=== PATIENT | female | born 1965 ===

== ENCOUNTER 2018-05-06 10:42 | Day surgery (SDC) | payer BC ==
[2018-05-04 09:26] VITALS: BMI 25.6
[2018-05-06 11:13] VITALS: O2SAT 100
[2018-05-06] MEDS ORDERED: Propofol 10 mg/ml Inj (20 ML) ONE (11:47)
[2018-05-06] MEDS ORDERED: ceFAZolin IV 2 gm in Dextrose 2 GM/50 ML BAG IVPB ONE (12:13)
[2018-05-06] MEDS ORDERED: Strong Iodine Topical Sol. 5%-10% ONE (12:13)
[2018-05-06] MEDS ORDERED: Midazolam 2 MG/2 ML VIAL ONE (12:16)
[2018-05-06] MEDS ORDERED: HYDROmorphone 0.5 mg/0.5 ml ISec IVP PRN (13:02)
[2018-05-06 14:05] VITALS: RESP 16
[2018-05-06 16:07] VITALS: BP 97/57; PULSE 71; TEMP 97.7
--- NOTE | 2018-05-09 08:08 | OP ---
PROCEDURE DATE: 05/06/2018 NATURE OF OPERATION: LEEP cone biopsy. ATTENDING SURGEON: Max Gray MD ANESTHESIOLOGIST: Dr. Lai. TYPE OF ANESTHESIA: General. PREOPERATIVE DIAGNOSIS: Cervical dysplasia. POSTOPERATIVE DIAGNOSIS: Cervical dysplasia. FINDING: Reveals a multiple foci of unstained area around 3, 6, 9 and 12 o'clock position with a Lugol solution. PROCEDURE: Under general anesthesia, with the patient in dorsal lithotomy position, she was prepped and draped and catheterized in the usual sterile manner. A heavy weighted speculum was placed on the posterior vaginal vault and with the help of a Pizarro speculum, the anterior lip of the cervix was grasped via tenaculum. With the Lugol solution, the cervix was stained and identified for unstained area. Then, the LEEP, a circumferential excision was carried out around the cervical opening. This was concentric and continuous excision down to the endocervical canal. There was minimal bleeding noted, which was cauterized with the electrocautery. The patient tolerated the procedure well and was transferred to recovery room in satisfactory condition. Max Gray MD
== END 2018-05-06 14:50 | disposition home or self-care (01) ==
LOC: C.SDS 10:42
PROVIDERS: ATTEND Obstetrics & Gynecology Gynecology
DX: N87.0 Mild cervical dysplasia (principal); N87.9 Dysplasia of cervix uteri, unspecified
CPT/HCPCS: 57460; 58110; 88305; J0690; J1100; J2001; J2250; J2405; J2704; J3010

== ENCOUNTER 2018-05-15 22:09 | Emergency (ER) | payer BC ==
[2018-05-15 22:09] VITALS: BMI 25.6
[2018-05-15 22:42] VITALS: O2SAT 98
--- NOTE | 2018-05-15 22:47 | C.PDOC ---
History Of Present Illness Pt had LEEP done on 05/06 and now has been complaining of a"twisting pressure" unrelieved by tylenol. No f/c/n/v. Very anxious. No change of bowel habits Time Seen by Provider: 05/15/18 22:46 Chief Complaint (Nursing): Abdominal Pain History Per: Patient History/Exam Limitations: no limitations Onset/Duration Of Symptoms: Days Current Symptoms Are (Timing): Still Present Context: Other Severity: Moderate Pain Scale Rating Of: 4 Location Of Pain/Discomfort: Suprapubic Radiation Of Pain To:: None Quality Of Discomfort: Dull, Pressure Associated Symptoms: denies: Fever, Chills, Nausea Exacerbating Factors: None Alleviating Factors: None Last Bowel Movement: Today Recent travel outside of the [place]: No Additional History Per: Patient Abnormal Vaginal Bleeding: No Past Medical History Reviewed: Historical Data, Nursing Documentation, Vital Signs Vital Signs: Last Vital Signs Temp 98.4 F 05/15/18 22:34 Pulse 87 05/15/18 22:34 Resp 18 05/15/18 22:34 BP 113/75 05/15/18 22:34 Pulse Ox 98 05/15/18 23:11 - Medical History PMH: Hypothyroidism Denies: Chronic Kidney Disease - [facility] Procedures ASPIRATION OF BREAST (10/20/05) Family History: States: No Known Family Hx - Social History Hx Alcohol Use: No Hx Substance Use: No - Immunization History Hx Tetanus Toxoid Vaccination: No Hx Influenza Vaccination: No Hx Pneumococcal Vaccination: No Review Of Systems Constitutional: Negative for: Fever, Chills Cardiovascular: Negative for: Chest Pain Respiratory: Negative for: Shortness of Breath Gastrointestinal: Positive for: Abdominal Pain. Negative for: Nausea, Vomiting Genitourinary: Negative for: Dysuria Musculoskeletal: Negative for: Back Pain Skin: Negative for: Rash Neurological: Negative for: Weakness Psych: Negative for: Anxiety Physical Exam - Physical Exam Appears: Non-toxic, No Acute Distress Skin: Warm, Dry Head: Normacephalic Eye(s): bilateral: Normal Inspection Oral Mucosa: Moist Neck: Supple Chest: Symmetrical Cardiovascular: Rhythm Regular Respiratory: No Rales, No Rhonchi, No Wheezing Gastrointestinal/Abdominal: Soft, Tenderness (mild suprapubioc), No Distention, No Guarding Back: Normal Inspection Extremity: Normal ROM Extremity: Bilateral: Atraumatic Neurological/Psych: Oriented x3, Normal Speech, Normal Cognition Gait: Steady ED Course And Treatment - Laboratory Results Result Diagrams: 05/15/18 23:34 05/15/18 23:34 O2 Sat by Pulse Oximetry: 98 Pulse Ox Interpretation: Normal Reevaluation Time: 02:17 Reassessment Condition: Improved Disposition Counseled Patient/Family Regarding: Studies Performed, Diagnosis - Disposition Referrals: Max Gray MD [Staff Provider] - Disposition: HOME/ ROUTINE Disposition Time: 22:47 Condition: FAIR Additional Instructions: Please return if symptoms recur Prescriptions: traMADol [Ultram] 50 mg PO TID PRN #15 tab PRN Reason: Pain, Severe (8-10) Instructions: Acute Pelvic Pain (DC) Forms: [employer] (Nicaraguan) - Clinical Impression Clinical Impression: Pelvic pain
[2018-05-15] MEDS ORDERED: Sodium Chloride 0.9% 1,000 ML IV ONE (23:07)
[2018-05-15 23:15] LABS: HCG,QUALITATIVE URINE NEGATIVE (NEGATIVE)
[2018-05-15 23:22] LABS: SQUAMOUS EPITHIAL 3 /hpf (0-5); URINE BACTERIA OCC (<OCC); URINE BILIRUBIN NEGATIVE (NEGATIVE); URINE BLOOD NEGATIVE (NEGATIVE); URINE CLARITY Clear (Clear); URINE COLOR Yellow (YELLOW); URINE GLUCOSE (UA) NORMAL (Normal); URINE LEUKOCYTE ESTERASE 1+ Leu/uL (Negative); URINE PROTEIN NEGATIVE (NEGATIVE)
[2018-05-15 23:39] LABS: BASO % 0.1 % (0.0-2.0); HEMOGLOBIN 11.6 g/dL (11.0-16.0); LYMPH # 2.2 K/uL (1.0-4.3); LYMPH % 21.2 % (20.0-40.0); MEAN CELL VOLUME 85.5 fL (81.0-99.0); MEAN CORPUSCULAR HEMOGLOBIN 29.1 pg (27.0-31.0); MEAN CORPUSCULAR HGB CONC 34.1 g/dL (33.0-37.0); MEAN PLATELET VOLUME 8.9 fL (7.2-11.7); MONO # 1.2 K/uL (0.0-0.8); MONO % 11.4 % (0.0-10.0); NEUT % 67.3 % (50.0-75.0); RBC 3.98 Mil/uL (3.80-5.20); RED CELL DISTRIBUTION WIDTH 13.2 % (11.5-14.5); WHITE BLOOD COUNT 10.4 K/uL (4.8-10.8)
[2018-05-15 23:53] LABS: ALB/GLOB RATIO 1.3 (1.0-2.1); ALBUMIN 4.2 g/dL (3.5-5.0); ALT/SGPT 24 U/L (9-52); AST/SGOT 22 U/L (14-36); BLOOD UREA NITROGEN 21 mg/dL (7-17); GFR AFRICAN-AMERICAN > 60; GFR NON-AFRICAN AMERICAN > 60; LIPASE 80 U/L (23-300)
[2018-05-16] MEDS ORDERED: Iodixanol 320 MG/ML 100 ML BOTTLE IV ONE (00:34)
[2018-05-16 02:40] VITALS: BP 104/65; PULSE 79; RESP 16; TEMP 98.2
--- NOTE | 2018-05-16 08:52 | CT ---
PROCEDURE: CT Abdomen and Pelvis without intravenous contrast HISTORY: Abdominal pain, s/p LEEP COMPARISON: None. TECHNIQUE: Multiple contiguous axial images were performed through the abdomen and pelvis with intravenous contrast. Subsequently, sagittal and coronal reformatted images were. Contrast dose: 100 cc Visipaque 320 intravenous contrast was administered. Radiation dose: Total exam DLP = 362 mGy-cm. This CT exam was performed using one or more of the following dose reduction techniques: Automated exposure control, adjustment of the mA and/or kV according to patient size, and/or use of iterative reconstruction technique. FINDINGS: LOWER THORAX: Mild atelectasis in the medial right middle lobe. LIVER: Unremarkable. No gross lesion or ductal dilatation. GALLBLADDER AND BILE DUCTS: Unremarkable. PANCREAS: Unremarkable. No gross lesion or ductal dilatation. SPLEEN: Unremarkable. ADRENALS: Unremarkable. No mass. KIDNEYS AND URETERS: 4.8 centimeter lower pole left renal cyst. VASCULATURE: Unremarkable. No aortic aneurysm. BOWEL: Unremarkable. No obstruction. No gross mural thickening. APPENDIX: No findings to suggest acute appendicitis. PERITONEUM: Unremarkable. No free fluid. No free air. LYMPH NODES: Unremarkable. No enlarged lymph nodes. BLADDER: Unremarkable. REPRODUCTIVE: Hypodensity in the cervical canal which may reflect fluid or hemorrhage. BONES: Prominent endplate sclerosis with anterior osteophytosis at the L3-4 level. OTHER FINDINGS: None. IMPRESSION: Hypodensity in the cervical canal which may reflect fluid or hemorrhage. Clinical correlation. These findings were preliminarily reported at 02:05 a.m. on 05/16/[address] Chaz Bui from [employer].
== END 2018-05-16 02:39 | disposition home or self-care (01) ==
LOC: C.ER 22:09
DX: R10.2 Pelvic and perineal pain (principal); E03.9 Hypothyroidism, unspecified
CPT/HCPCS: 74177; 80053; 81001; 83690; 84703; 85025; 85610; 85730; 96361; 96374; 99284; J1885; J7030; Q9967

== ENCOUNTER 2018-05-19 07:41 | Emergency (ER) | payer BC ==
[2018-05-19 07:46] VITALS: BMI 26.5
[2018-05-19 07:52] VITALS: O2SAT 100
[2018-05-19] MEDS ORDERED: Sodium Chloride 0.9% 1,000 ML IV ONE (08:24)
[2018-05-19] MEDS ORDERED: Sodium Chloride 0.9% 1,000 ML ONE (08:34)
[2018-05-19 08:48] LABS: BASO % 0.1 % (0.0-2.0); HEMOGLOBIN 12.1 g/dL (11.0-16.0); LYMPH # 1.4 K/uL (1.0-4.3); LYMPH % 14.6 % (20.0-40.0); MEAN CELL VOLUME 85.5 fL (81.0-99.0); MEAN CORPUSCULAR HEMOGLOBIN 29.5 pg (27.0-31.0); MEAN CORPUSCULAR HGB CONC 34.5 g/dL (33.0-37.0); MEAN PLATELET VOLUME 8.3 fL (7.2-11.7); MONO # 0.9 K/uL (0.0-0.8); MONO % 9.2 % (0.0-10.0); NEUT # 7.3 K/uL (1.8-7.0); NEUT % 76.1 % (50.0-75.0); RBC 4.09 Mil/uL (3.80-5.20); WHITE BLOOD COUNT 9.6 K/uL (4.8-10.8)
[2018-05-19 08:49] LABS: HCG,QUALITATIVE URINE NEGATIVE (NEGATIVE)
[2018-05-19 08:58] LABS: URINE BILIRUBIN NEGATIVE (NEGATIVE); URINE BLOOD NEGATIVE (NEGATIVE); URINE CLARITY Clear (Clear); URINE COLOR Straw (YELLOW); URINE GLUCOSE (UA) NORMAL (Normal); URINE LEUKOCYTE ESTERASE NEG Leu/uL (Negative); URINE PROTEIN NEGATIVE (NEGATIVE); URINE UROBILINOGEN NORMAL mg/dL (0.2-1.0)
[2018-05-19 09:02] LABS: ALB/GLOB RATIO 1.3 (1.0-2.1); ALBUMIN 4.2 g/dL (3.5-5.0); ALT/SGPT 21 U/L (9-52); AST/SGOT 21 U/L (14-36); BLOOD UREA NITROGEN 12 mg/dL (7-17); GFR AFRICAN-AMERICAN > 60; GFR NON-AFRICAN AMERICAN > 60
[2018-05-19 11:06] VITALS: BP 122/84; PULSE 86; RESP 16; TEMP 98.2
--- NOTE | 2018-05-19 11:07 | US ---
HISTORY: Pain, s/p leep COMPARISON: None available. TECHNIQUE: Transabdominal sonographic evaluation of the pelvis FINDINGS: UTERUS: Measures 12.4 x 4.7 x 6.6 cm. Normal in size and appearance. No fibroid or other mass lesion seen. ENDOMETRIUM: Measures 6.4 mm in diameter. Unremarkable. CERVIX: No cervical abnormality identified. Cervix measures 3.62 RIGHT OVARY: Measures 2.7 x 2.6 x 2.6 cm. No solid mass. Normal flow. LEFT OVARY: Measures 3.7 x 2.5 x 3.2. Cm. No solid mass. Normal flow. Two small adjacent cysts are present, the 1st measuring approximately 2.1 cm in greatest dimension and the 2nd measuring 1.5 cm in greatest dimension. FREE FLUID: No significant free fluid noted. OTHER FINDINGS: None. IMPRESSION: There are 2 small left ovarian cysts.
--- NOTE | 2018-05-19 12:01 | C.PDOC ---
History Of Present Illness 52 year old female presents to the ED for evaluation of pelvic pain which has been intermittent since 05/06/18. Patient states she underwent LEEP on 05/06 and has been experiencing pelvic pain and pressure since. She reports finding transient relief after taking [id number] pain medicine. She denies fever, chills, nausea, vomiting, changes in bowel habits, urinary frequency, dysuria, or vaginal bleeding. Time Seen by Provider: 05/19/18 07:54 Chief Complaint (Nursing): Abdominal Pain History Per: Patient History/Exam Limitations: no limitations Onset/Duration Of Symptoms: Intermittent Episodes (since 05/06/18) Current Symptoms Are (Timing): Still Present Radiation Of Pain To:: None Quality Of Discomfort: Pressure, "Pain" Associated Symptoms: denies: Fever, Chills, Nausea, Vomiting, Diarrhea, Constipation, Urinary Symptoms Additional History Per: Patient Abnormal Vaginal Bleeding: No Past Medical History Reviewed: Historical Data, Nursing Documentation, Vital Signs Vital Signs: Last Vital Signs Temp 98.2 F 05/19/18 11:05 Pulse 86 05/19/18 11:05 Resp 16 05/19/18 11:05 BP 122/84 05/19/18 11:05 Pulse Ox 100 05/19/18 12:30 - Medical History PMH: Hypothyroidism Denies: Chronic Kidney Disease Surgical History: No Surg Hx - [facility] Procedures ASPIRATION OF BREAST (10/20/05) Family History: States: Unknown Family Hx - Social History Hx Alcohol Use: No Hx Substance Use: No - Immunization History Hx Tetanus Toxoid Vaccination: No Hx Influenza Vaccination: No Hx Pneumococcal Vaccination: No Review Of Systems Constitutional: Negative for: Fever, Chills Gastrointestinal: Negative for: Nausea, Vomiting Genitourinary: Positive for: Pelvic Pain. Negative for: Dysuria, Frequency Physical Exam - Physical Exam Appears: Non-toxic, No Acute Distress Skin: Normal Color, Warm, Dry Head: Atraumatic, Normacephalic Eye(s): bilateral: Normal Inspection, EOMI Nose: Normal Oral Mucosa: Moist Neck: Normal ROM, Supple Chest: Symmetrical, No Deformity, No Tenderness Cardiovascular: Rhythm Regular Respiratory: Normal Breath Sounds, No Rales, No Rhonchi, No Wheezing Gastrointestinal/Abdominal: Soft, Tenderness (suprapubic), No Guarding, No Rebound Pelvic: Other (refused, bevel polisher Corrine) Extremity: Normal ROM, Capillary Refill (less than 2 seconds ) Neurological/Psych: Oriented x3, Normal Speech, Normal Cognition ED Course And Treatment - Laboratory Results Result Diagrams: 05/19/18 08:43 05/19/18 08:43 O2 Sat by Pulse Oximetry: 100 (on RA) Pulse Ox Interpretation: Normal - CT Scan/US Pelvic US Other Rad Studies (CT/US): Read By Radiologist, Radiology Report Reviewed CT/US Interpretation: HISTORY: Pain, s/p leep. COMPARISON: None available. TECHNIQUE: Transabdominal sonographic evaluation of the pelvis. FINDINGS: UTERUS: Measures 12.4 x 4.7 x 6.6 cm. Normal in size and appearance. No fibroid or other mass lesion seen. ENDOMETRIUM: Measures 6.4 mm in diameter. Unremarkable. CERVIX: No cervical abnormality identified. Cervix measures 3.62. RIGHT OVARY: Measures 2.7 x 2.6 x 2.6 cm. No solid mass. Normal flow. LEFT OVARY: Measures 3.7 x 2.5 x 3.2. Cm. No solid mass. Normal flow. Two small adjacent cysts are present, the 1st measuring approximately 2.1 cm in greatest dimension and the 2nd measuring 1.5 cm in greatest dimension. FREE FLUID: No significant free fluid noted. OTHER FINDINGS: None. IMPRESSION: There are 2 small left ovarian cysts. Progress Note: Bloodwork and urinalysis ordered and reviewed. Prior records reviewed: Patient was evaluated in [facility] on 05/15 for same complaints and underwent a CT A/P scan which showed "Hypodensity in the cervical canal which may reflect fluid or hemorrhage. Clinical correlation.". Pelvic Ultrasound ordered and reviewed. Patient given Toradol IVP and IV Fluids. Attempted to contact Dr. Max Gray (HORSEBACK EXCAVATOR) without success. On re-examination, patient is resting comfortably, showing no signs of distress and reports an improvement in her symptoms. Her abdomen remains soft and is she tolerating PO intake. PT refused pelvic exam noting her SUPERVISOR [employer] notes nothing vaginally for 2 months. Patient feels comfortable with discharge and is advised to follow up with Dr. Gray today and return to the ED if symptoms persist or worsen. Squilgeer Amanda Ibarra RN used to ensure understanding. Disposition - Disposition Referrals: Max Gray MD [Staff Provider] - Disposition: HOME/ ROUTINE Disposition Time: 11:59 Condition: STABLE Additional Instructions: Vaya a keller mdico o la clnica en 1-3 vinson sin falta, para mas evaluacin. [place] los medicamentos brodie indicado. Volver a la jolie de emergencia en cualquier momento si los sntomas persisten o empeoran. Prescriptions: Naproxen [Naprosyn] 1 tab PO BID PRN #20 tab PRN Reason: Pain Instructions: Acute Pelvic Pain (DC) Forms: [employer] (Rwandan) Print Language: CITIZEN OF [place] - Clinical Impression Clinical Impression: Pelvic pain - PA / FIELD SPECIALIST / Resident Statement MD/DO has reviewed & agrees with the documentation as recorded. - Scribe Statement The provider has reviewed the documentation as recorded by the Scribe (Kay Chavez) All medical record entries made by the Scribe were at my direction and personally dictated by me. I have reviewed the chart and agree that the record accurately reflects my personal performance of the history, physical exam, medical decision making, and the department course for this patient. I have also personally directed, reviewed, and agree with the discharge instructions and disposition.
== END 2018-05-19 12:05 | disposition home or self-care (01) ==
LOC: C.ER 07:41
DX: R10.2 Pelvic and perineal pain (principal)
CPT/HCPCS: 76856; 80053; 81001; 84703; 85025; 96361; 96374; 99285; J1885; J7030

== ENCOUNTER 2018-06-05 18:14 | Emergency (ER) | payer BC ==
[2018-06-05 18:14] VITALS: BMI 26.5
--- NOTE | 2018-06-05 19:44 | C.PDOC ---
History Of Present Illness 52 year old female with PMHx of hypothyroidism presents to the ED c/o pelvic pain that has been present for the past 3 months. Patient reports she had a biopsy of her cervix done. Patient was evaluated twice in the ED at the end of April. Patient states she followed up with her OB who prescribed her flagyl for an "infection" but patient states pain is persistent. Patient describes her pain as suprapubic. Patient denies fever, chills, nausea, vomit, diarrhea, weakness, numbness. Time Seen by Provider: 06/05/18 19:20 Chief Complaint (Nursing): Abdominal Pain History Per: Patient History/Exam Limitations: no limitations Onset/Duration Of Symptoms: Days, Persistent Current Symptoms Are (Timing): Still Present Location Of Pain/Discomfort: Suprapubic Radiation Of Pain To:: None Quality Of Discomfort: "Pain" Associated Symptoms: denies: Nausea, Vomiting, Diarrhea, Urinary Symptoms Exacerbating Factors: None Alleviating Factors: None Recent travel outside of the [place]: No Additional History Per: Patient Abnormal Vaginal Bleeding: No Past Medical History Reviewed: Historical Data, Nursing Documentation, Vital Signs Vital Signs: Last Vital Signs Temp 98.8 F 06/05/18 22:37 Pulse 81 06/05/18 22:37 Resp 18 06/05/18 23:39 BP 122/79 06/05/18 22:37 Pulse Ox 100 06/05/18 23:15 - Medical History PMH: Hypothyroidism Denies: Chronic Kidney Disease Surgical History: No Surg Hx - [facility] Procedures ASPIRATION OF BREAST (10/20/05) Family History: States: Unknown Family Hx - Social History Hx Alcohol Use: No Hx Substance Use: No - Immunization History Hx Tetanus Toxoid Vaccination: Yes Hx Influenza Vaccination: Yes Hx Pneumococcal Vaccination: Yes Review Of Systems Except As Marked, All Systems Reviewed And Found Negative. Gastrointestinal: Positive for: Abdominal Pain Genitourinary: Positive for: Pelvic Pain Physical Exam - Physical Exam Appears: Non-toxic, No Acute Distress Skin: Normal Color, Warm, Dry Head: Atraumatic, Normacephalic Eye(s): bilateral: Normal Inspection Oral Mucosa: Moist Neck: Normal ROM, Supple Chest: Symmetrical Cardiovascular: Rhythm Regular Respiratory: Normal Breath Sounds, No Rales, No Rhonchi, No Wheezing Gastrointestinal/Abdominal: Soft, Tenderness (suprapubic), No Guarding, No Rebound Pelvic: Normal External Exam, Normal Bimanual Exam, No Vaginal Bleeding, Vaginal Discharge (minimal white), No Cervical Motion Tenderness, No Cervix Open , Adnexal Tenderness (left) Extremity: Normal ROM, No Tenderness, No Swelling Neurological/Psych: Oriented x3, Normal Speech Gait: Steady ED Course And Treatment - Laboratory Results Result Diagrams: 06/05/18 20:00 06/05/18 20:00 O2 Sat by Pulse Oximetry: 100 (ON RA) Pulse Ox Interpretation: Normal - CT Scan/US Pelvic US Other Rad Studies (CT/US): Read By Radiologist, Radiology Report Reviewed CT/US Interpretation: EXAM: US Pelvis Complete, Transabdominal. CLINICAL HISTORY: 52 years old, female; Pelvic pain. C- section. LMP: 05/31/18. TECHNIQUE : Real-time transabdominal pelvic ultrasound (complete) with image documentation. COMPARISON: The report from the prior pelvic ultrasound dated . The images are not available for review. FINDINGS: Limitations: Limited evaluation of the uterus and ovaries due to the poorly distended bladder. Uterus/cervix: The uterus is anteflexed. It measures 8.7x4.4x4.9 CM with a volume of 97.1 mL. The. endometrial stripe is not visualized well. It measures about 6 mm. No discrete myometrial mass is. seen. Right ovary: The right ovary is not visualized. Left ovary: The left ovary measures 3.3x1.7x3.2 CM with a volume of 9.8 mL. There is a. 1.6x1.4x1.6 CM small simple cyst. Normal color and Doppler flow. Free fluid: No cul-de-sac fluid. IMPRESSION: 1.6x1.4x1.6 CM simple left ovarian cyst. Nonvisualization of the right ovary. . EXAM: US Pelvis, Transvaginal. CLINICAL HISTORY: 52 years old, female; Pelvic pain. C- section. LMP: 05/31/18. BUSTER MCCORMACK | Preliminary Radiology Report. CONFIDENTIALITY STATEMENT. This report is intended only for the use of the referring physician, and only in accordance with law, If you received this in error, call [phone]. Page 2 of 2. TECHNIQUE: Real-time transvaginal pelvic ultrasound (complete) with image documentation. Transvaginal. imaging was used for better evaluation of the endometrium and adnexa. COMPARISON: CT - ABD PELVIS IV CONTRAST ONLY 05-16 01:07. FINDINGS: Uterus/cervix: The uterus is normal in size and echotexture. It measures 9.9x4.6x5.4 CM with a. volume of 130 mL. Echogenic endometrial stripe measures 9 mm in thickness. Tiny fluid in the. endometrial cavity and endocervical canal. A small 0.6x0.9x1 CM cystic area is noted in the mid. uterus. There is a 1.1x0.6x0.7 CM oval hypoechogenic area in the cervix. Possible complicated. nabothian cyst. No myometrial mass. Right ovary: The right ovary measures 2.5x1.7x1.9 CM with a volume of 4 mL. Normal color and. Doppler flow. Left ovary: The left ovary measures 3.0x2.5x3.3 CM with a volume of 13 mL. There are 2 simple. cysts that measure 1.7x1.5x1.6 CM and 0.9x0.9x1 CM. Normal color and Doppler flow. Free fluid: No cul-de-sac fluid. IMPRESSION : 0.6x0.9x1 CM small cystic area in the mid uterus. It could represent fluid in the endometrial cavity or. small cystic mass. Recommend comparison with prior ultrasound. 2 simple cysts in the left ovary. Thank you for allowing us to participate in the care of your patient. Dictated and Authenticated by: Abbey Gong MD. 06/05/2018 10:35 PM Eastern Time ([place] & [place]) Medical Decision Making Medical Decision Making: Impression: persistent pelvic pain Plan: * Labs * Tylenol 975 mg PO * UA * Pelvic US labs neg. us shows cyst. discussed at length with supervisor toy assembly. advise outpt fu. return precautions advied. no wbc count. 3 mo pain advised outpt fu. Disposition - Disposition Referrals: [facility] [Outside] [facility] [Outside] Disposition: HOME/ ROUTINE Disposition Time: 23:00 Condition: STABLE Additional Instructions: please follow up with obgyn. you will need further managment and eval. return to er with worsening symptoms or concerns. Instructions: Chronic Pelvic Pain in Women, Ovarian Cyst (DC) Forms: [employer] (Palauan) Print Language: CAP[place] VER[place]AN - Clinical Impression Clinical Impression: Pelvic pain, Ovarian cyst - Scribe Statement The provider has reviewed the documentation as recorded by the Scribe Joey Aparicio All medical record entries made by the Navaibe were at my direction and personally dictated by me. I have reviewed the chart and agree that the record accurately reflects my personal performance of the history, physical exam, medical decision making, and the department course for this patient. I have also personally directed, reviewed, and agree with the discharge instructions and disposition.
[2018-06-05 20:07] LABS: BASO % 0.2 % (0.0-2.0); HEMOGLOBIN 12.1 g/dL (11.0-16.0); LYMPH # 1.6 K/uL (1.0-4.3); MEAN CELL VOLUME 86.5 fL (81.0-99.0); MEAN CORPUSCULAR HEMOGLOBIN 28.8 pg (27.0-31.0); MEAN CORPUSCULAR HGB CONC 33.3 g/dL (33.0-37.0); MEAN PLATELET VOLUME 8.6 fL (7.2-11.7); MONO # 0.7 K/uL (0.0-0.8); MONO % 9.6 % (0.0-10.0); NEUT # 5.3 K/uL (1.8-7.0); NEUT % 69.2 % (50.0-75.0); NRBC % 0.1 % (0.0-2.0); RBC 4.2 Mil/uL (3.80-5.20); RED CELL DISTRIBUTION WIDTH 13.9 % (11.5-14.5); WHITE BLOOD COUNT 7.7 K/uL (4.8-10.8)
[2018-06-05 20:09] LABS: HCG,QUALITATIVE URINE NEGATIVE (NEGATIVE); SQUAMOUS EPITHIAL < 1 /hpf (0-5); URINE BILIRUBIN NEGATIVE (NEGATIVE); URINE BLOOD NEGATIVE (NEGATIVE); URINE CLARITY Clear (Clear); URINE COLOR Colorless (YELLOW); URINE GLUCOSE (UA) NORMAL (Normal); URINE LEUKOCYTE ESTERASE TRACE Leu/uL (Negative); URINE PROTEIN NEGATIVE (NEGATIVE); URINE UROBILINOGEN NORMAL mg/dL (0.2-1.0)
[2018-06-05 20:13] LABS: PROTHROMBIN TIME 10.8 SECONDS (9.7-12.2)
[2018-06-05 20:18] LABS: ALB/GLOB RATIO 1.5 (1.0-2.1); ALBUMIN 4.2 g/dL (3.5-5.0); ALT/SGPT 26 U/L (9-52); AST/SGOT 23 U/L (14-36); BLOOD UREA NITROGEN 18 mg/dL (7-17); GFR AFRICAN-AMERICAN > 60; GFR NON-AFRICAN AMERICAN > 60; LIPASE 122 U/L (23-300)
[2018-06-05 22:38] VITALS: BP 122/79; PULSE 81; TEMP 98.8
[2018-06-05 22:41] VITALS: O2SAT 100
[2018-06-05 23:45] VITALS: RESP 18
--- NOTE | 2018-06-06 10:26 | US ---
HISTORY: pelvicpain COMPARISON: Pelvic ultrasound dated 05/19/2015. TECHNIQUE: Grayscale, color Doppler and spectral evaluation the pelvis performed transabdominally and transvaginally FINDINGS: UTERUS: Measures 3.9 x 4.6 x 5.4 cm. Anteverted. Normal in size and appearance. No fibroid or other mass lesion seen. ENDOMETRIUM: Measures 6 mm in diameter. Unremarkable. CERVIX: Complex nabothian cyst. No cervical abnormality identified. RIGHT OVARY: Measures 2.5 x 1.7 x 1.9 cm. No solid mass. Normal flow. LEFT OVARY: Measures 3.0 x 2.5 x 3.3 cm. No solid mass. Normal flow. FREE FLUID: No significant free fluid noted. OTHER FINDINGS: None. IMPRESSION: Unremarkable pelvic ultrasound.
== END 2018-06-05 23:39 | disposition home or self-care (01) ==
LOC: C.ER 18:14
DX: N83.209 Unspecified ovarian cyst, unspecified side (principal); R10.2 Pelvic and perineal pain